=== PATIENT | male | born 1955 | race Caucasian/White ===

== ENCOUNTER 2018-08-20 08:26 | Inpatient (IN) | payer MEDICARE ==
[~2018-08-20] VITALS: Ht 182.9 cm; Wt 81.6 kg
[2018-08-20] MEDS ORDERED: ACET-868 PO (08:42)
[2018-08-20] MEDS ORDERED: TEMA15CA5 PO (08:42)
[2018-08-20] MEDS ORDERED: OXCA150T5 PO (08:42)
[2018-08-20] MEDS ORDERED: LORA-258 PO (08:42)
[2018-08-20] MEDS ORDERED: HYDR-4384 PO (08:42)
[2018-08-20] MEDS ORDERED: MAGN400O6 PO (08:42)
[2018-08-20] MEDS ORDERED: BISA10SU8 RC (08:42)
[2018-08-20] MEDS ORDERED: NA P133E RC (08:42)
[2018-08-20] MEDS ORDERED: MIRT7.5T10 PO (08:42)
[2018-08-20] MEDS ORDERED: CLON0.5T PO (08:42)
[2018-08-20] MEDS ORDERED: AMLO5TAB9 PO (08:42)
[2018-08-20] MEDS ORDERED: BUSP10TA35 PO (08:42)
[2018-08-20] MEDS ORDERED: LEVE250T2 PO (08:42)
[2018-08-20] MEDS ORDERED: DOCU-141 PO (08:42)
[2018-08-20 08:51] LABS: BASOPHILS # (AUTO) 0.1 /CMM (0.0-0.2); BASOPHILS % (AUTO) 0.7 % (0.0-2.0); EOSINOPHILS % (AUTO) 2.2 % (0.0-6.0); HEMATOCRIT 44 % (39-51); HEMOGLOBIN 14.4 g/dL (13.5-17.5); LYMPHOCYTES # (AUTO) 1.4 /CMM (0.8-4.8); LYMPHOCYTES % (AUTO) 16.9 % (20.0-44.0); MEAN CORPUSCULAR HGB CONC 33 g/dl (31.0-36.0); MEAN CORPUSCULAR VOLUME 91 fL (80-96); MONOCYTES # (AUTO) 0.6 /CMM (0.1-1.30); MONOCYTES % (AUTO) 7.8 % (2.0-12.0); NEUTROPHILS # (AUTO) 5.8 /CMM (1.8-8.9); NEUTROPHILS % (AUTO) 72.4 % (43.0-81.0); PLATELET COUNT (AUTO) 413 /CMM (150-450)
[2018-08-20 09:02] LABS: BILIRUBIN,URINE MODERATE (NEGATIVE); BLOOD, URINE Negative Ery/uL (NEGATIVE); KETONES,URINE 15 (NEGATIVE); LEUKOCYTE ESTERASE ,URINE Negative (NEGATIVE); NITRITE, URINE Negative (NEGATIVE); PROTEIN,URINE 100 mg/dl (NEGATIVE); UGLUCOSE Negative (NEGATIVE)
[2018-08-20 09:04] LABS: APPEARANCE,URINE Hazy (CLEAR); COLOR,URINE Dark Yellow (YELLOW)
[2018-08-20 09:07] LABS: ALANINE AMINOTRANSFERASE 106 U/L (12-78); ALBUMIN 3.9 g/dL (3.4-5.0); ALKALINE PHOSPHATASE 165 U/L (46-116); ASPARTATE AMINOTRANSFERASE 41 U/L (15-37); BILIRUBIN,DIRECT 0.2 mg/dL (0.0-0.2); BILIRUBIN,TOTAL 0.6 mg/dL (0.2-1.0); CARBON DIOXIDE 30 mmol/L (21-32); CHLORIDE 112 mmol/L (98-107); CREATININE 1.2 mg/dL (0.6-1.3); GLUCOSE 113 mg/dL (74-106); POTASSIUM 4.2 mmol/L (3.5-5.1); SODIUM SERUM 149 mmol/L (136-145); TOTAL PROTEIN, SERUM 8.3 g/dL (6.4-8.2); UREA NITROGEN, BLOOD 33 mg/dL (7-18)
[2018-08-20 09:09] LABS: BACTERIA,URINE None seen /HPF (None Seen); MUCUS,URINE Few /LPF (None Seen); RBC,URINE 0-3 /HPF (0-2); SQUAMOUS EPITHELIAL CELL,UR Few /HPF (None Seen); WBC,URINE 0-3 /HPF (0-3)
[2018-08-20 09:19] LABS: SALICYLATE 1.1 mg/dL (2.8-20.0)
[2018-08-20 09:20] LABS: ACETAMINOPHEN 0 ug/ml (10-30); ALCOHOL, BLOOD < 3 mg/dL (0-0)
[2018-08-20 10:54] LABS: CALCIUM, SERUM 10.5 mg/dL (8.5-10.1)
[2018-08-20] MEDS ORDERED: clonazePAM 0.5 MG TABLET PO PRN (13:30)
[2018-08-20] MEDS ORDERED: ACETAMINOPHEN 325 MG TABLET PO PRN (13:30)
[2018-08-20] MEDS ORDERED: MAGNESIUM HYDROXIDE 30 ML UDC PO PRN (13:30)
[2018-08-20] MEDS ORDERED: MAG HYDROX/AL HYDROX/SIMETH 30 ML UDC PO PRN (13:30)
[2018-08-20 16:00] VITALS: BP 132/97
[2018-08-20] MEDS ORDERED: NA PHOS,M-B/NA PHOS,DI-BA 1 EA ENEMA RC PRN (16:30)
[2018-08-20] MEDS ORDERED: HYDROCODONE/APAP 5/325MG 1 EACH TABLET PO PRN (16:30)
[2018-08-20] MEDS ORDERED: BISACODYL SUPP (10 MG) 10 MG/SUPP.RECT SUPP.RECT RC PRN (16:30)
[2018-08-20] MEDS: DOCUSATE SODIUM 100 MG CAPSULE PO SCH (17:00)
[2018-08-20 20:00] VITALS: BP 150/79
[2018-08-20] MEDS: LEVETIRACETAM (250 MG) 250 MG TABLET PO SCH (21:31)
[2018-08-21] MEDS: TEMAZEPAM 7.5 MG CAPSULE PO PRN (01:00)
[2018-08-21 08:00] VITALS: BP 110/63
[2018-08-21] MEDS: DOCUSATE SODIUM 100 MG CAPSULE PO SCH ×2 (08:45→17:00)
[2018-08-21] MEDS: LEVETIRACETAM (250 MG) 250 MG TABLET PO SCH ×2 (08:45→21:00)
[2018-08-21] MEDS: AMLODIPINE BESYLATE 5 MG TABLET PO SCH (08:46)
[2018-08-21 10:56] LABS: ALBUMIN 4.1 g/dL (3.4-5.0); BILIRUBIN,TOTAL 0.6 mg/dL (0.2-1.0); CALCIUM, SERUM 10.2 mg/dL (8.5-10.1); CREATININE 1.6 mg/dL (0.6-1.3); MAGNESIUM 2.7 mg/dL (1.8-2.4); PHOSPHORUS 4.8 mg/dL (2.5-4.9); TOTAL PROTEIN, SERUM 8.6 g/dL (6.4-8.2)
[2018-08-21] MEDS: busPIRone 5 MG TABLET PO SCH ×2 (13:00→17:00)
[2018-08-21] MEDS: OXCARBAZEPINE 150 MG TABLET PO SCH ×2 (13:00→17:00)
[2018-08-21 16:00] VITALS: BP 131/89
[2018-08-21 20:41] VITALS: BP 117/75
[2018-08-21] MEDS: MIRTAZAPINE 15 MG TABLET PO SCH (21:41)
[2018-08-22 08:00] VITALS: BP 115/67
[2018-08-22] MEDS: busPIRone 5 MG TABLET PO SCH ×3 (08:59→17:00)
[2018-08-22] MEDS: AMLODIPINE BESYLATE 5 MG TABLET PO SCH (08:59)
[2018-08-22] MEDS: LEVETIRACETAM (250 MG) 250 MG TABLET PO SCH ×2 (08:59→21:00)
[2018-08-22] MEDS: OXCARBAZEPINE 150 MG TABLET PO SCH ×3 (08:59→17:00)
[2018-08-22] MEDS: DOCUSATE SODIUM 100 MG CAPSULE PO SCH ×2 (08:59→17:00)
[2018-08-22 16:00] VITALS: BP 127/95
[2018-08-22] MEDS: ENSURE ENLIVE 237 ML LIQUID (VANILLA) PO SCH (17:00)
[2018-08-22 19:39] VITALS: BP 113/91
[2018-08-22] MEDS: MIRTAZAPINE 15 MG TABLET PO SCH (21:18)
[2018-08-23 06:54] LABS: BASOPHILS % (AUTO) 0.3 % (0.0-2.0); HEMATOCRIT 44 % (39-51); HEMOGLOBIN 14.5 g/dL (13.5-17.5); LYMPHOCYTES # (AUTO) 1.6 /CMM (0.8-4.8); MEAN CORPUSCULAR HGB CONC 33 g/dl (31.0-36.0); MEAN CORPUSCULAR VOLUME 91 fL (80-96); MONOCYTES # (AUTO) 0.7 /CMM (0.1-1.30); MONOCYTES % (AUTO) 4.9 % (2.0-12.0); NEUTROPHILS # (AUTO) 12.1 /CMM (1.8-8.9); NEUTROPHILS % (AUTO) 83.8 % (43.0-81.0); PLATELET COUNT (AUTO) 357 /CMM (150-450); RED BLOOD CELL COUNT(AUTO) 4.85 MIL/uL (4.5-6.0); WHITE BLOOD COUNT (AUTO) 14.4 K/uL (4.3-11.0)
[2018-08-23 07:21] LABS: CALCIUM, SERUM 10.4 mg/dL (8.5-10.1); CREATININE 1.9 mg/dL (0.6-1.3); MAGNESIUM 3.3 mg/dL (1.8-2.4); POTASSIUM 4.1 mmol/L (3.5-5.1)
[2018-08-23 08:00] VITALS: BP 109/69
[2018-08-23] MEDS: AMLODIPINE BESYLATE 5 MG TABLET PO SCH (09:00)
[2018-08-23] MEDS: DOCUSATE SODIUM 100 MG CAPSULE PO SCH ×2 (09:00→17:00)
[2018-08-23] MEDS: LEVETIRACETAM (250 MG) 250 MG TABLET PO SCH ×2 (09:00→21:00)
[2018-08-23] MEDS: busPIRone 5 MG TABLET PO SCH ×3 (09:00→17:00)
[2018-08-23] MEDS: ENSURE ENLIVE 237 ML LIQUID (VANILLA) PO SCH ×3 (09:00→17:18)
[2018-08-23] MEDS: OXCARBAZEPINE 150 MG TABLET PO SCH ×3 (09:00→17:00)
[2018-08-23 17:03] VITALS: BP 158/64
[2018-08-23] MEDS: Z GUARD REMEDY 2 OZ OINT TP SCH (19:06)
[2018-08-23 20:18] VITALS: BP 140/71
[2018-08-23] MEDS: MIRTAZAPINE 15 MG TABLET PO SCH (22:00)
[2018-08-24 07:01] LABS: BASOPHILS % (AUTO) 0.2 % (0.0-2.0); EOSINOPHILS % (AUTO) 0.2 % (0.0-6.0); HEMATOCRIT 43 % (39-51); HEMOGLOBIN 14.1 g/dL (13.5-17.5); LYMPHOCYTES # (AUTO) 1.7 /CMM (0.8-4.8); LYMPHOCYTES % (AUTO) 12.4 % (20.0-44.0); MEAN CORPUSCULAR HGB CONC 33 g/dl (31.0-36.0); MEAN CORPUSCULAR VOLUME 91 fL (80-96); MONOCYTES # (AUTO) 0.7 /CMM (0.1-1.30); MONOCYTES % (AUTO) 5.3 % (2.0-12.0); NEUTROPHILS # (AUTO) 11.3 /CMM (1.8-8.9); NEUTROPHILS % (AUTO) 81.9 % (43.0-81.0); PLATELET COUNT (AUTO) 332 /CMM (150-450); RED BLOOD CELL COUNT(AUTO) 4.77 MIL/uL (4.5-6.0); WHITE BLOOD COUNT (AUTO) 13.8 K/uL (4.3-11.0)
[2018-08-24 07:37] LABS: ALBUMIN 4.1 g/dL (3.4-5.0); CALCIUM, SERUM 10.1 mg/dL (8.5-10.1); CREATININE 1.7 mg/dL (0.6-1.3); MAGNESIUM 3.1 mg/dL (1.8-2.4); PHOSPHORUS 3.8 mg/dL (2.5-4.9); POTASSIUM 3.8 mmol/L (3.5-5.1); TOTAL PROTEIN, SERUM 8.4 g/dL (6.4-8.2)
[2018-08-24 08:00] VITALS: BP 100/64
[2018-08-24] MEDS: Z GUARD REMEDY 2 OZ OINT TP SCH ×2 (09:00→17:48)
[2018-08-24] MEDS: AMLODIPINE BESYLATE 5 MG TABLET PO SCH (09:00)
[2018-08-24] MEDS: OXCARBAZEPINE 150 MG TABLET PO SCH ×3 (09:00→17:00)
[2018-08-24] MEDS: DOCUSATE SODIUM 100 MG CAPSULE PO SCH ×2 (09:00→17:00)
[2018-08-24] MEDS: LEVETIRACETAM (250 MG) 250 MG TABLET PO SCH ×2 (09:00→21:00)
[2018-08-24] MEDS: busPIRone 5 MG TABLET PO SCH ×3 (09:00→17:00)
[2018-08-24] MEDS: ENSURE ENLIVE 237 ML LIQUID (VANILLA) PO SCH ×3 (09:23→17:49)
[2018-08-24 16:00] VITALS: BP 120/88
[2018-08-24 20:05] VITALS: BP 82/61
[2018-08-24] MEDS: MIRTAZAPINE 15 MG TABLET PO SCH (22:00)
[2018-08-25] MEDS: TEMAZEPAM 7.5 MG CAPSULE PO PRN (00:12)
[2018-08-25] MEDS: DOCUSATE SODIUM 100 MG CAPSULE PO SCH ×2 (08:35→09:00)
[2018-08-25] MEDS: AMLODIPINE BESYLATE 5 MG TABLET PO SCH (08:35)
[2018-08-25] MEDS: busPIRone 5 MG TABLET PO SCH ×3 (08:35→13:00)
[2018-08-25] MEDS: OXCARBAZEPINE 150 MG TABLET PO SCH ×3 (08:36→13:00)
[2018-08-25] MEDS: LEVETIRACETAM (250 MG) 250 MG TABLET PO SCH ×2 (08:36→09:00)
[2018-08-25] MEDS: Z GUARD REMEDY 2 OZ OINT TP SCH (08:36)
[2018-08-25] MEDS: ENSURE ENLIVE 237 ML LIQUID (VANILLA) PO SCH ×2 (08:37→13:00)
[2018-08-25 08:40] VITALS: BP 102/56
== END 2018-08-25 14:20 | DRG 885 ==
LOC: ER 08:29 → GPS 12:19
PROVIDERS: ADMIT Psychiatry & Neurology Psychiatry; ATTEND Nurse Practitioner Acute Care
DX: F29 Unspecified psychosis not due to a substance or known physiological condition (principal); N17.0 Acute kidney failure with tubular necrosis; F02.81 Dementia in other diseases classified elsewhere, unspecified severity, with behavioral disturbance; E87.0 Hyperosmolality and hypernatremia; G31.09 Other frontotemporal neurocognitive disorder; R62.7 Adult failure to thrive; Z68.24 Body mass index [BMI] 24.0-24.9, adult; F02.80 Dementia in other diseases classified elsewhere, unspecified severity, without behavioral disturbance, psychotic disturbance, mood disturbance, and anxiety; Z87.820 Personal history of traumatic brain injury; Z87.440 Personal history of urinary (tract) infections; Z79.899 Other long term (current) drug therapy; I10 Essential (primary) hypertension; Z98.890 Other specified postprocedural states; Z88.0 Allergy status to penicillin; R73.9 Hyperglycemia, unspecified; R74.0 Nonspecific elevation of levels of transaminase and lactic acid dehydrogenase [LDH]; G40.909 Epilepsy, unspecified, not intractable, without status epilepticus; F32.9 Major depressive disorder, single episode, unspecified; Z73.6 Limitation of activities due to disability; E83.52 Hypercalcemia; E86.0 Dehydration; Z66 Do not resuscitate
CPT/HCPCS: 36415; 71045-TC; 80048-TC; 80053-TC; 80061-TC; 80076-TC; 80305; 81000-TC; 82550-TC; 83735-TC; 83970; 84100-TC; 85025-TC; 87081-TC; 92611-TC; G0480